=== PATIENT | female | born 1970 | race Caucasian/White ===

== ENCOUNTER 2024-01-12 14:30 | Outpatient (RCR) | payer BC, SELFPAY ==
[2024-01-05 14:30] VITALS: BP 132/59
[2024-01-05] MEDS: INJECTAFER 265 MG IV (14:57)
[2024-01-05 15:36] VITALS: BP 123/53
[2024-01-12 15:00] VITALS: BP 127/60
[2024-01-12] MEDS: INJECTAFER 265 MG IV (15:04)
[2024-01-12 16:10] VITALS: BP 121/58
== END 2024-01-13 09:34 | disposition home or self-care (01) ==
LOC: OID 14:30
PROVIDERS: ATTENDING PHYSICIAN Family Medicine
DX: D50.9 Iron deficiency anemia, unspecified (principal); M35.00 Sjogren syndrome, unspecified; R41.840 Attention and concentration deficit; R53.83 Other fatigue; F40.00 Agoraphobia, unspecified
CPT/HCPCS: 96365; J1439